=== PATIENT | female | born 1930 | race Caucasian/White ===

== ENCOUNTER → 2017-07-28 | Outpatient (CLI) | payer MEDICARE ==
[~2017-07-28] MED LIST: 'CLONIDINE0.1 MG PO; AMARYL4 MG PO; ASPIRIN81 M1 PO; ATORVASTATIN CA20 M1 PO; B12100 MC1 PO; CENTRUM SILVER1 EAC1 PO; D3-20002000 UNIT PO; DOXAZOSIN MESYLA1 MG PO; JANUMET XR 1001 EACH PO; LEVOTHYROXINE0.05 M1 PO; METOPROLOL SUCC50 M1 PO; OCUVITE ADULT 51 SGL PO; OMEPRAZOLE MAGN20 MG PO; QUINAPRIL40 MG PO; TOPCARE OMEPRAZ20 MG PO
== END | disposition home or self-care (01) ==
LOC: MAMMO 00:40
DX: Z12.31 Encounter for screening mammogram for malignant neoplasm of breast (principal); Z13.820 Encounter for screening for osteoporosis; R29.890 Loss of height; Z90.722 Acquired absence of ovaries, bilateral; Z85.528 Personal history of other malignant neoplasm of kidney; Z90.710 Acquired absence of both cervix and uterus; Z78.0 Asymptomatic menopausal state; Z96.643 Presence of artificial hip joint, bilateral; Z98.1 Arthrodesis status

== ENCOUNTER 2017-09-21 15:13 | Inpatient (IN) | payer MEDICARE ==
[~2017-09-21] VITALS: Ht 160 cm; Wt 73.7 kg
[2017-09-21 15:28] VITALS: BP 169/78
--- NOTE | 2017-09-21 16:20 | NUR ---
PATIENT STATES DEMEROL EFFECTIVE FOR PAIN RELIEF. PATIENT RESTING IN BED. DENIES ANY DISCOMFORT AT THIS TIME.
[2017-09-21 16:21] LABS: BASO # 0.1 10*3/uL (0.0-0.1); BASO % 0.4 % (0.0-1.0); EOS # 0.4 10*3/uL (0.0-0.4); EOS % 2.5 % (1.0-4.0); HEMATOCRIT 33.9 % (37.0-47.0); LYMPH # 2.1 10*3/uL (1.3-4.4); LYMPH % 14.6 % (27.0-41.0); MEAN CELL VOLUME 89.2 fl (81.0-99.0); MEAN CORPUSCULAR HGB 28.9 pg (27.0-31.0); MEAN CORPUSCULAR HGB CONC 32.4 g/dl (33.0-37.0); MEAN PLATELET VOLUME 9.6 fl (9.6-12.3); MONO # 0.8 10*3/uL (0.1-1.0); MONO % 5.8 % (3.0-9.0); NEUT # 10.9 10*3/uL (2.3-7.9); NEUT % 76.2 % (47.0-73.0); PLATELET COUNT AUTOMATED 215 10*3/uL (130-400); RED CELL DISTRI WIDTH 13.4 % (0-14.5); WHITE BLOOD COUNT 14.4 10*3/uL (4.8-10.8)
[2017-09-21 16:30] LABS: ACT PARTIAL THROMBO TIME 22.1 SECONDS (20.8-31.5)
--- NOTE | 2017-09-21 16:30 | NUR ---
PATIENT AND FAMILY REPORTS THAT ZOFRAN HAS NOT BEEN EFFECTIVE IN THE PAST. REQUESTS REGLAN. PATIENT REPORTS NAUSEA IS PERSISTENT. SEE NEW ORDERS.
--- NOTE | 2017-09-21 16:37 | NUR ---
REGLAN ADMINISTERED PER PT AND FAMILY REQUEST. WILL CONTINUE TO MONITOR PT.
[2017-09-21 16:38] LABS: ALBUMIN 3.6 gm/dl (3.1-4.5); ALKALINE PHOSPHATASE 90 U/L (45-117); BUN 29 mg/dl (7-24); CHLORIDE 108 mmol/L (98-107); CREATININE 1.43 mg/dL (0.55-1.02); LIPASE 186 U/L (73-393); POTASSIUM 4.2 mmol/L (3.5-5.1); SGOT/AST 13 IU/L (3-35); SGPT/ALT 20 U/L (12-78); SODIUM 141 mmol/L (136-145); TOTAL PROTEIN 7.5 gm/dL (6.4-8.2)
[2017-09-21 16:43] LABS: TROPONIN I < 0.015 ng/ml (<0.045)
--- NOTE | 2017-09-21 16:55 | NUR ---
PATIENT ACTIVELY VOMITING AT THIS TIME. CHANEL LOUIS NOTIFIED. SEE NEW ORDERS.
--- NOTE | 2017-09-21 17:20 | NUR ---
PT MEDICATED FOR NAUSEA AT THIS TIME. WILL CONTINUE TO MONITOR.
[2017-09-21 17:40] LABS: BILIRUBIN NEGATIVE (NEGATIVE); BLOOD TRACE-LYSED (NEGATIVE); CLARITY CLEAR (CLEAR); COLOR YELLOW (YELLOW); GLUCOSE 1+ (NEGATIVE); KETONE NEGATIVE (NEGATIVE); LEUKO ESTERASE NEGATIVE (NEGATIVE); NITRITE NEGATIVE (NEGATIVE); PH 5.5 (5.0-9.0); UROBILINOGEN 0.2 E.U./dl (0.2-1.0)
--- NOTE | 2017-09-21 17:40 | NUR ---
PT LAYING IN BED. PT DENIES NAUSEA, PAIN OR DISCOMFORT AT THIS TIME. FAMILY AT BEDSIDE. WILL CONTINUE TO MONITOR.
[2017-09-21 17:53] LABS: BACTERIA TRACE
[2017-09-21 18:00] VITALS: BP 154/72
--- NOTE | 2017-09-21 18:55 | NUR ---
Time: 1854 A 86 year old FEMALE admitted to under services of MAEGAN CIFUENTES DO, Pt. arrived via bed from ER. Chief complaint: ABDOMINAL PAIN. JIGAR SOLORZANO
[2017-09-21] MEDS ORDERED: GLIMEPIRIDE4 M1 PO (19:00)
[2017-09-21] MEDS ORDERED: JANUMET XR 50-1 EAC1 PO (19:02)
[2017-09-21] MEDS ORDERED: METOPROLOL TART50 M1 PO (19:05)
--- NOTE | 2017-09-21 19:05 | NUR ---
DR. AGUILLON INFORMED THAT PATIENT IS ON THE FLOOR FOR ADMISSION FROM ER.
[2017-09-21] MEDS ORDERED: 'CLONIDINE0.1 MG PO (19:18)
[2017-09-21] MEDS ORDERED: B12,B-12,B 12500 MC1 PO (19:19)
[2017-09-21 20:00] VITALS: BP 160/80
--- NOTE | 2017-09-21 20:00 | NUR ---
PT. IS RESTING IN BED WITH VISITOR AT BEDSIDE. PT. HAS HOB ELEVATED AND CALL LIGHT WITHIN REACH. PT. HAS NO C/O STOMACH PAIN AT THIS TIME AND DENIES NAUSEA, SMALL, YELLOW, EMESIS NOTED IN WASH BASIN. PT. DENIES ANY OTHER C/O, AND DISTRESS IS NOT NOTED AT THIS TIME. IV IN LEFT HAND PATENT AND RUNNING LR AT 80ML/HR. SEE SHIFT ASSESSMENT.
[2017-09-22] VITALS: BP 144/40
[2017-09-22 06:39] LABS: BASO % 0.3 % (0.0-1.0); EOS # 0.1 10*3/uL (0.0-0.4); EOS % 0.5 % (1.0-4.0); HEMOGLOBIN 10.4 g/dl (12.0-16.0); LYMPH # 2.1 10*3/uL (1.3-4.4); LYMPH % 17.8 % (27.0-41.0); MEAN CELL VOLUME 91.2 fl (81.0-99.0); MEAN CORPUSCULAR HGB 29.6 pg (27.0-31.0); MEAN CORPUSCULAR HGB CONC 32.5 g/dl (33.0-37.0); MEAN PLATELET VOLUME 10.3 fl (9.6-12.3); MONO # 0.9 10*3/uL (0.1-1.0); MONO % 7.5 % (3.0-9.0); NEUT # 8.7 10*3/uL (2.3-7.9); NEUT % 73.6 % (47.0-73.0); PLATELET COUNT AUTOMATED 219 10*3/uL (130-400); RED BLOOD COUNT 3.51 10*6/uL (4.10-5.10); RED CELL DISTRI WIDTH 13.4 % (0-14.5); WHITE BLOOD COUNT 11.8 10*3/uL (4.8-10.8)
[2017-09-22 06:47] LABS: CREATININE 1.26 mg/dL (0.55-1.02); POTASSIUM 4.2 mmol/L (3.5-5.1)
[2017-09-22 06:52] LABS: PHOSPHOROUS 3.2 mg/dL (2.5-4.9)
[2017-09-22 06:58] LABS: THYROID STIM HORMONE (HS) 0.796 uIU/ml (0.358-4.75)
[2017-09-22 07:56] LABS: VITAMIN D, 25-HYDROXY 31.8 ng/mL (30-100)
[2017-09-22 08:00] VITALS: BP 130/40
--- NOTE | 2017-09-22 08:30 | NUR ---
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 Patient states lives at home alone. There are no steps in the home. Physician: Astrid Pal CNP [facility] [place] [facility]: none at present, has used [facility] previously Patient's level of ADLs: INDEPENDENT Patient has working utilities: yes DME: none Follow-up physician's appointment after d/c: will be made by hospitalist nurse director upon discharge Does patient want to access PORTAL?: no Discharge plan discussed with patient. She lives at home alone. She in independent in her ADLs and ambulation. She is feeling much better today and is hoping to be discharged today. She has a she wants to attend. Denies any home needs at this time. When medically stable she will be discharged to home. JENNIFER BOND
[2017-09-22] MEDS ORDERED: PHENERGAN25 M3 PO (10:55)
--- NOTE | 2017-09-22 12:30 | NUR ---
CCDIS Discharge instructions reviewed with patient/family. Patient receptive and verbalizes understanding. Follow-up care arranged. Written instructions given to patient/family. SILVANO NIETO
== END 2017-09-22 12:30 | disposition home or self-care (01) | DRG 683 ==
LOC: ED 15:13 → EDHOLD 18:38 → 4E 18:38
PROVIDERS: Physician Assistant; Student in an Organized Health Care Education/Training Program; ADMIT Internal Medicine
DX: N17.0 Acute kidney failure with tubular necrosis (principal); I50.32 Chronic diastolic (congestive) heart failure; E11.22 Type 2 diabetes mellitus with diabetic chronic kidney disease; E11.65 Type 2 diabetes mellitus with hyperglycemia; I13.0 Hypertensive heart and chronic kidney disease with heart failure and stage 1 through stage 4 chronic kidney disease, or unspecified chronic kidney disease; D72.829 Elevated white blood cell count, unspecified; D64.9 Anemia, unspecified; K21.9 Gastro-esophageal reflux disease without esophagitis; Z96.643 Presence of artificial hip joint, bilateral; Z96.653 Presence of artificial knee joint, bilateral; E86.0 Dehydration; K57.30 Diverticulosis of large intestine without perforation or abscess without bleeding; N18.3 Chronic kidney disease, stage 3 (moderate); K44.9 Diaphragmatic hernia without obstruction or gangrene; E03.9 Hypothyroidism, unspecified; E53.8 Deficiency of other specified B group vitamins; E78.5 Hyperlipidemia, unspecified; K22.719 Barrett's esophagus with dysplasia, unspecified; H35.30 Unspecified macular degeneration; Z85.038 Personal history of other malignant neoplasm of large intestine; Z90.5 Acquired absence of kidney; Z90.49 Acquired absence of other specified parts of digestive tract; Z90.710 Acquired absence of both cervix and uterus; Z80.0 Family history of malignant neoplasm of digestive organs; Z82.49 Family history of ischemic heart disease and other diseases of the circulatory system; Z83.3 Family history of diabetes mellitus; Z79.82 Long term (current) use of aspirin; Z79.899 Other long term (current) drug therapy

== ENCOUNTER → 2019-01-10 | Outpatient (CLI) | payer MEDICARE ==
[~2019-01-10] MED LIST changes: +B12,B-12,B 12500 MC1 PO; +GLIMEPIRIDE4 M1 PO; +JANUMET XR 50-1 EAC1 PO; +METOPROLOL TART50 M1 PO; +PHENERGAN25 M3 PO
--- NOTE | ~2019-01-10 | EKG ---
[place], [place] ELECTROCARDIOGRAM REPORT NAME: FRANCO KAPADIA UNIT #: [id number] ROOM: DOCTOR: EPIPHANY DRAFT REPORT BIRTHDATE: [birth year] [facility] Test Date: 2019-01-10 Test Time: 08:17:53 Pat Name: FRANCO KAPADIA Department: Room: Gender: F Servicer: Chantale Sanchez : 1930 Requested By: TRIXIE MILTON CNP Order Number: [id number] Reading MD: Jewel Acosta MD Measurements Intervals [place] Rate: 70 P: 19 CA: 198 QRS: -4 QRSD: 92 T: 65 QT: 397 QTc: 429 Interpretive Statements Sinus rhythm Nonspecific ST T changes Electronically Signed On 01-11-2019 8:30:34 PDT by Jewel Acosta MD CM:EKGRPT:ELECTROCARDIOGRAM REPORT 6 9 TRIXIE MILTON CNP EPIPHANY DRAFT REPORT TRIXIE MILTON CNP
--- NOTE | ~2019-01-10 | HM ---
[place], [place] HOLTER MONITOR REPORT NAME: FRANCO KAPADIA UNIT #: [id number] ROOM: DOCTOR: COURTNEY CIFUENTES MD BIRTHDATE: [birth year] DOS: 01/11/2019 A 24-HOUR HOLTER MONITOR The patient remained in sinus rhythm throughout the entire period. Minimum heart rate is 61 and average heart rate is 85, maximum is 118 beats per minute. As mentioned, the patient in sinus rhythm, few episodes of sinus tachycardia, isolated, premature ventricular contractions are present. Total of 661 in a 24-hour period. No ventricular tachycardia, no supraventricular tachycardia. No significant pauses. FINAL IMPRESSION: Sinus rhythm with a few episodes of sinus tachycardia, isolated premature ventricular contraction. No other ventricular or supraventricular dysrhythmia. No significant pauses. COURTNEY CIFUENTES MD CM:HOLTER:HOLTER MONITOR REPORT [id number] COURTNEY CIFUENTES MD
== END | disposition home or self-care (01) ==
LOC: CARD 07:01
DX: I07.1 Rheumatic tricuspid insufficiency (principal); I65.29 Occlusion and stenosis of unspecified carotid artery; R42 Dizziness and giddiness; Z79.899 Other long term (current) drug therapy

== ENCOUNTER → 2019-01-19 | Outpatient (CLI) | payer MEDICARE ==
[2019-01-19 15:45] LABS: CREATININE 1.42 mg/dL (0.55-1.02); POTASSIUM 3.8 mmol/L (3.5-5.1)
== END | disposition home or self-care (01) ==
LOC: LAB 14:02
PROVIDERS: Surgery Vascular Surgery
DX: I65.23 Occlusion and stenosis of bilateral carotid arteries (principal)

== ENCOUNTER → 2019-01-25 | Outpatient (CLI) | payer MEDICARE ==
[2019-01-25 15:38] LABS: CREATININE 1.42 mg/dL (0.55-1.02); POTASSIUM 4.5 mmol/L (3.5-5.1)
== END | disposition home or self-care (01) ==
LOC: LAB 14:40
PROVIDERS: Surgery Vascular Surgery
DX: I65.23 Occlusion and stenosis of bilateral carotid arteries (principal)

== ENCOUNTER → 2019-05-18 | Outpatient (CLI) | payer MEDICARE ==
[2019-05-18 08:51] LABS: ALBUMIN 3.8 gm/dl (3.1-4.5); CREATININE 1.43 mg/dL (0.55-1.02); FREE T4 1.1 ng/dl (0.76-1.46); POTASSIUM 4.3 mmol/L (3.5-5.1)
[2019-05-18 08:56] LABS: THYROID STIM HORMONE (HS) 0.764 uIU/ml (0.358-4.75)
[2019-05-18 17:16] LABS: VITAMIN D, 25-HYDROXY 30.1 ng/mL (30-100)
== END | disposition home or self-care (01) ==
LOC: LAB 07:16
PROVIDERS: Internal Medicine Endocrinology, Diabetes & Metabolism
DX: E03.9 Hypothyroidism, unspecified (principal); E11.9 Type 2 diabetes mellitus without complications; E55.9 Vitamin D deficiency, unspecified; E53.8 Deficiency of other specified B group vitamins

== ENCOUNTER → 2019-06-06 | Outpatient (CLI) | payer MEDICARE | END | disposition home or self-care (01) | LOC: RESCLI 01:55 | DX: I12.9 Hypertensive chronic kidney disease with stage 1 through stage 4 chronic kidney disease, or unspecified chronic kidney disease (principal); E11.22 Type 2 diabetes mellitus with diabetic chronic kidney disease; N18.3 Chronic kidney disease, stage 3 (moderate); E55.9 Vitamin D deficiency, unspecified; E53.8 Deficiency of other specified B group vitamins; E03.9 Hypothyroidism, unspecified; E78.5 Hyperlipidemia, unspecified; Z78.0 Asymptomatic menopausal state; Z79.899 Other long term (current) drug therapy ==

== ENCOUNTER → 2019-07-26 | Outpatient (CLI) | payer MEDICARE | END | disposition home or self-care (01) | LOC: RAD 01:03 | DX: Z13.820 Encounter for screening for osteoporosis (principal); Z78.0 Asymptomatic menopausal state; Z90.710 Acquired absence of both cervix and uterus ==

== ENCOUNTER 2019-08-19 23:45 | Emergency (ER) | payer MEDICARE ==
[~2019-08-19] VITALS: Wt 72.6 kg
--- NOTE | ~2019-08-19 | EKG ---
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
[2019-08-20 00:14] LABS: BASO # 0.1 10*3/uL (0.0-0.1); BASO % 0.8 % (0.0-1.0); EOS # 0.5 10*3/uL (0.0-0.4); EOS % 5.6 % (1.0-4.0); HEMATOCRIT 36.4 % (37.0-47.0); HEMOGLOBIN 11.7 g/dl (12.0-16.0); LYMPH # 2.9 10*3/uL (1.3-4.4); LYMPH % 29.8 % (27.0-41.0); MEAN CELL VOLUME 92.9 fl (81.0-99.0); MEAN CORPUSCULAR HGB 29.8 pg (27.0-31.0); MEAN CORPUSCULAR HGB CONC 32.1 g/dl (33.0-37.0); MEAN PLATELET VOLUME 9.9 fl (9.6-12.3); MONO # 0.8 10*3/uL (0.1-1.0); NEUT # 5.4 10*3/uL (2.3-7.9); NEUT % 55.5 % (47.0-73.0); PLATELET COUNT AUTOMATED 203 10*3/uL (130-400); RED BLOOD COUNT 3.92 10*6/uL (4.10-5.10); RED CELL DISTRI WIDTH 12.9 % (0-14.5); WHITE BLOOD COUNT 9.6 10*3/uL (4.8-10.8)
[2019-08-20 00:23] LABS: BILIRUBIN NEGATIVE (NEGATIVE); BLOOD TRACE-INTACT (NEGATIVE); CLARITY CLEAR (CLEAR); COLOR YELLOW (YELLOW); GLUCOSE NEGATIVE (NEGATIVE); KETONE NEGATIVE (NEGATIVE); LEUKO ESTERASE 2+ (NEGATIVE); NITRITE NEGATIVE (NEGATIVE); SPECIFIC GRAVITY <= 1.005 (1.005-1.030); UROBILINOGEN 0.2 E.U./dl (0.2-1.0)
[2019-08-20 00:31] LABS: ALBUMIN 3.6 gm/dl (3.1-4.5); ALKALINE PHOSPHATASE 77 U/L (45-117); BUN 33 mg/dl (7-24); CHLORIDE 111 mmol/L (98-107); CPK 58 U/L (26-192); CREATININE 1.48 mg/dL (0.55-1.02); POTASSIUM 3.9 mmol/L (3.5-5.1); SGOT/AST 13 IU/L (3-35); SGPT/ALT 22 U/L (12-78); SODIUM 141 mmol/L (136-145); TOTAL PROTEIN 7.5 gm/dL (6.4-8.2)
[2019-08-20 00:34] LABS: BACTERIA 1+; EPITHELIAL CELLS 15-20; RBC 21-30 rbc/hpf (0-2); WBC 41-50 wbc/hpf (0-5)
[2019-08-20 00:36] LABS: TROPONIN I < 0.015 ng/ml (<0.045)
[2019-08-20 00:37] LABS: ACT PARTIAL THROMBO TIME 23.1 SECONDS (20.0-32.1); INTERNATIONAL NORM RATIO 0.9 (2.0-3.5)
== END 2019-08-20 04:43 ==
LOC: ED 23:45
PROVIDERS: Physician Assistant
DX: G45.9 Transient cerebral ischemic attack, unspecified (principal); I11.0 Hypertensive heart disease with heart failure; I50.30 Unspecified diastolic (congestive) heart failure; E11.9 Type 2 diabetes mellitus without complications; K21.9 Gastro-esophageal reflux disease without esophagitis; E78.5 Hyperlipidemia, unspecified; E03.9 Hypothyroidism, unspecified; Z86.73 Personal history of transient ischemic attack (TIA), and cerebral infarction without residual deficits; Z79.899 Other long term (current) drug therapy; Z79.82 Long term (current) use of aspirin

== ENCOUNTER → 2019-09-21 | Outpatient (CLI) | payer MEDICARE | END | disposition home or self-care (01) | LOC: RESCLI 00:38 | DX: E11.22 Type 2 diabetes mellitus with diabetic chronic kidney disease (principal); I12.9 Hypertensive chronic kidney disease with stage 1 through stage 4 chronic kidney disease, or unspecified chronic kidney disease; N18.3 Chronic kidney disease, stage 3 (moderate); E55.9 Vitamin D deficiency, unspecified; E53.8 Deficiency of other specified B group vitamins; E03.9 Hypothyroidism, unspecified; E78.5 Hyperlipidemia, unspecified; D64.9 Anemia, unspecified; M81.0 Age-related osteoporosis without current pathological fracture; Z78.0 Asymptomatic menopausal state; Z90.710 Acquired absence of both cervix and uterus; Z79.899 Other long term (current) drug therapy; Z90.49 Acquired absence of other specified parts of digestive tract; Z96.651 Presence of right artificial knee joint; Z96.652 Presence of left artificial knee joint; Z90.5 Acquired absence of kidney; Z85.53 Personal history of malignant neoplasm of renal pelvis ==

== ENCOUNTER 2020-02-22 19:22 | Inpatient (IN) | payer MEDICARE ==
[~2020-02-22] VITALS: Ht 160 cm; Wt 69.9 kg
[2020-02-22 19:52] VITALS: BP 164/53
[2020-02-22 21:39] LABS: BASO % 0.2 % (0.0-1.0); EOS % 0.2 % (1.0-4.0); HEMATOCRIT 38.7 % (37.0-47.0); LYMPH # 1.4 10*3/uL (1.3-4.4); LYMPH % 10.4 % (27.0-41.0); MEAN CORPUSCULAR HGB CONC 32.6 g/dl (33.0-37.0); MEAN PLATELET VOLUME 9.5 fl (9.6-12.3); MONO # 0.8 10*3/uL (0.1-1.0); MONO % 6.1 % (3.0-9.0); NEUT # 10.8 10*3/uL (2.3-7.9); NEUT % 82.6 % (47.0-73.0); PLATELET COUNT AUTOMATED 254 10*3/uL (130-400); RED BLOOD COUNT 4.35 10*6/uL (4.10-5.10); RED CELL DISTRI WIDTH 13.2 % (0-14.5); WHITE BLOOD COUNT 13.1 10*3/uL (4.8-10.8)
[2020-02-22 21:50] LABS: ACT PARTIAL THROMBO TIME 22.8 SECONDS (20.0-32.1); INTERNATIONAL NORM RATIO 0.9 (2.0-3.5)
[2020-02-22 21:56] LABS: ALBUMIN 3.7 gm/dl (3.1-4.5); ALKALINE PHOSPHATASE 87 U/L (45-117); BUN 40 mg/dl (7-24); CHLORIDE 106 mmol/L (98-107); CREATININE 1.88 mg/dL (0.55-1.02); LIPASE 179 U/L (73-393); POTASSIUM 4.4 mmol/L (3.5-5.1); SGOT/AST 20 IU/L (3-35); SGPT/ALT 27 U/L (12-78); SODIUM 134 mmol/L (136-145); TOTAL PROTEIN 7.6 gm/dL (6.4-8.2); TROPONIN I < 0.015 ng/ml (<0.045)
[2020-02-23] VITALS (7 sets, daily range): BP systolic 124–162; BP diastolic 45–78
[2020-02-23 06:08] LABS: BASO # 0.1 10*3/uL (0.0-0.1); BASO % 0.5 % (0.0-1.0); EOS # 0.2 10*3/uL (0.0-0.4); EOS % 2.1 % (1.0-4.0); LYMPH # 1.9 10*3/uL (1.3-4.4); LYMPH % 19.5 % (27.0-41.0); MEAN CELL VOLUME 91.8 fl (81.0-99.0); MEAN CORPUSCULAR HGB CONC 31.6 g/dl (33.0-37.0); MEAN PLATELET VOLUME 10.9 fl (9.6-12.3); MONO # 0.8 10*3/uL (0.1-1.0); MONO % 8.4 % (3.0-9.0); NEUT # 6.6 10*3/uL (2.3-7.9); NEUT % 69.1 % (47.0-73.0); PLATELET COUNT AUTOMATED 230 10*3/uL (130-400); RED BLOOD COUNT 4.03 10*6/uL (4.10-5.10); RED CELL DISTRI WIDTH 13.4 % (0-14.5); WHITE BLOOD COUNT 9.6 10*3/uL (4.8-10.8)
[2020-02-23 06:59] LABS: CREATININE 1.51 mg/dL (0.55-1.02); POTASSIUM 4.2 mmol/L (3.5-5.1)
[2020-02-23] MEDS ORDERED: GLUCOTROL5 MG PO (08:50)
[2020-02-23] MEDS ORDERED: CLOPIDOGREL75 MG PO (08:51)
[2020-02-23] MEDS ORDERED: SEROQUEL25 MG PO (08:56)
[2020-02-23] MEDS ORDERED: Synthroid,Levo50 MCG PO ×2 (08:58→08:59)
[2020-02-23] MEDS ORDERED: TRAD5TAB1 PO (09:00)
[2020-02-23] MEDS ORDERED: NORVASC5 MG PO (09:02)
[2020-02-24] VITALS: BP 139/59
[2020-02-24 05:55] LABS: BASO # 0.1 10*3/uL (0.0-0.1); BASO % 0.7 % (0.0-1.0); EOS # 0.4 10*3/uL (0.0-0.4); EOS % 5.5 % (1.0-4.0); HEMATOCRIT 35.4 % (37.0-47.0); LYMPH # 1.6 10*3/uL (1.3-4.4); LYMPH % 22.6 % (27.0-41.0); MEAN CELL VOLUME 91.7 fl (81.0-99.0); MEAN CORPUSCULAR HGB 29.3 pg (27.0-31.0); MEAN CORPUSCULAR HGB CONC 31.9 g/dl (33.0-37.0); MEAN PLATELET VOLUME 10.1 fl (9.6-12.3); MONO # 0.5 10*3/uL (0.1-1.0); MONO % 7.2 % (3.0-9.0); NEUT # 4.4 10*3/uL (2.3-7.9); NEUT % 63.4 % (47.0-73.0); PLATELET COUNT AUTOMATED 233 10*3/uL (130-400); RED BLOOD COUNT 3.86 10*6/uL (4.10-5.10); RED CELL DISTRI WIDTH 13.4 % (0-14.5); WHITE BLOOD COUNT 6.9 10*3/uL (4.8-10.8)
[2020-02-24 06:08] LABS: CREATININE 1.33 mg/dL (0.55-1.02); POTASSIUM 4.4 mmol/L (3.5-5.1)
[2020-02-24 08:00] VITALS: BP 142/60
[2020-02-24 09:00] VITALS: BP 110/42
[2020-02-24] MEDS ORDERED: CIPRO500 MG PO (10:48)
[2020-02-24] MEDS ORDERED: FLAGYL500 MG PO (10:48)
== END 2020-02-24 14:51 | disposition home or self-care (01) | DRG 391 ==
LOC: ED 19:22 → EDHOLD 02-23 01:20 → 4E 02-23 01:45
PROVIDERS: Emergency Medicine Emergency Medical Services; Internal Medicine; ADMIT Internal Medicine
DX: K29.80 Duodenitis without bleeding (principal); N17.0 Acute kidney failure with tubular necrosis; E87.1 Hypo-osmolality and hyponatremia; I13.0 Hypertensive heart and chronic kidney disease with heart failure and stage 1 through stage 4 chronic kidney disease, or unspecified chronic kidney disease; I50.30 Unspecified diastolic (congestive) heart failure; A09 Infectious gastroenteritis and colitis, unspecified; N18.3 Chronic kidney disease, stage 3 (moderate); D72.829 Elevated white blood cell count, unspecified; E83.41 Hypermagnesemia; E03.9 Hypothyroidism, unspecified; E11.65 Type 2 diabetes mellitus with hyperglycemia; E78.5 Hyperlipidemia, unspecified; Z96.643 Presence of artificial hip joint, bilateral; Z96.653 Presence of artificial knee joint, bilateral; E11.22 Type 2 diabetes mellitus with diabetic chronic kidney disease; K21.9 Gastro-esophageal reflux disease without esophagitis; K57.90 Diverticulosis of intestine, part unspecified, without perforation or abscess without bleeding; K44.9 Diaphragmatic hernia without obstruction or gangrene; S20.211A Contusion of right front wall of thorax, initial encounter; E53.8 Deficiency of other specified B group vitamins; K22.70 Barrett's esophagus without dysplasia; W01.0XXA Fall on same level from slipping, tripping and stumbling without subsequent striking against object, initial encounter; Y93.89 Activity, other specified; Y92.098 Other place in other non-institutional residence as the place of occurrence of the external cause; Y99.8 Other external cause status; Z85.038 Personal history of other malignant neoplasm of large intestine; Z86.73 Personal history of transient ischemic attack (TIA), and cerebral infarction without residual deficits; Z90.49 Acquired absence of other specified parts of digestive tract; Z90.710 Acquired absence of both cervix and uterus; Z98.1 Arthrodesis status; Z82.49 Family history of ischemic heart disease and other diseases of the circulatory system; Z80.0 Family history of malignant neoplasm of digestive organs; Z83.3 Family history of diabetes mellitus; Z79.899 Other long term (current) drug therapy; Z79.84 Long term (current) use of oral hypoglycemic drugs

== ENCOUNTER 2020-03-23 19:12 | Inpatient (IN) | payer MEDICARE ==
[~2020-03-23] VITALS: Ht 160 cm; Wt 69.0 kg
[~2020-03-23 19:12] MED LIST changes: +CIPRO500 MG PO; +CLOPIDOGREL75 MG PO; +FLAGYL500 MG PO; +GLUCOTROL5 MG PO; +NORVASC5 MG PO; +SEROQUEL25 MG PO; +Synthroid,Levo50 MCG PO; +TRAD5TAB1 PO
[2020-03-23 19:18] VITALS: BP 172/71
[2020-03-23 19:50] LABS: BASO # 0.1 10*3/uL (0.0-0.1); BASO % 0.6 % (0.0-1.0); EOS # 0.1 10*3/uL (0.0-0.4); EOS % 0.6 % (1.0-4.0); LYMPH # 1.9 10*3/uL (1.3-4.4); LYMPH % 14.8 % (27.0-41.0); MEAN CELL VOLUME 91.7 fl (81.0-99.0); MEAN CORPUSCULAR HGB 28.9 pg (27.0-31.0); MEAN CORPUSCULAR HGB CONC 31.5 g/dl (33.0-37.0); MEAN PLATELET VOLUME 9.2 fl (9.6-12.3); MONO # 0.7 10*3/uL (0.1-1.0); MONO % 5.8 % (3.0-9.0); NEUT # 9.7 10*3/uL (2.3-7.9); NEUT % 77.7 % (47.0-73.0); PLATELET COUNT AUTOMATED 264 10*3/uL (130-400); RED BLOOD COUNT 4.36 10*6/uL (4.10-5.10); RED CELL DISTRI WIDTH 13.5 % (0-14.5); WHITE BLOOD COUNT 12.5 10*3/uL (4.8-10.8)
[2020-03-23 20:04] LABS: ALBUMIN 3.8 gm/dl (3.1-4.5); CREATININE 1.76 mg/dL (0.55-1.02); POTASSIUM 4.1 mmol/L (3.5-5.1); TOTAL PROTEIN 8.3 gm/dL (6.4-8.2)
[2020-03-23 21:18] LABS: BILIRUBIN NEGATIVE (NEGATIVE); BLOOD NEGATIVE (NEGATIVE); CLARITY CLOUDY (CLEAR); COLOR YELLOW (YELLOW); GLUCOSE NEGATIVE (NEGATIVE); KETONE NEGATIVE (NEGATIVE); LEUKO ESTERASE NEGATIVE (NEGATIVE); NITRITE NEGATIVE (NEGATIVE); SPECIFIC GRAVITY 1.025 (1.005-1.030); URIC ACID CRYSTALS 4+; UROBILINOGEN 0.2 E.U./dl (0.2-1.0)
[2020-03-23 21:30] VITALS: BP 135/62
[2020-03-23 22:52] VITALS: BP 153/62
--- NOTE | 2020-03-23 22:52 | NUR ---
A 89, admitted to , under the services of MJ Lewis DO with a diagnosis of CARSON, N/V. Chief complaint is NAUSEA AND VOMITING. Patient arrived via stretcher from ER. Monitor applied. Initial assessment completed. Vital signs taken and recorded. MJ LEWIS DO notified of admission to the unit. Orders received. See assessment for past medical history, medications and allergies. Patient and/or family oriented to unit. [facility] visitation policy reviewed. Clothing/patient valuable form completed. MITCHEL GARCIA
--- NOTE | 2020-03-23 23:00 | NUR ---
ON FLOOR, INFORMED HOME MED VERIFIED AND PATIENT IS A DNRCC. STATED OK
[2020-03-23] MEDS ORDERED: ASPIR 8181 MG PO (23:09)
[2020-03-23] MEDS ORDERED: PEPCID20 MG PO (23:09)
[2020-03-24] VITALS: BP 153/62
[2020-03-24 06:54] LABS: BASO # 0.1 10*3/uL (0.0-0.1); BASO % 0.8 % (0.0-1.0); EOS # 0.4 10*3/uL (0.0-0.4); EOS % 3.4 % (1.0-4.0); HEMATOCRIT 38.2 % (37.0-47.0); LYMPH # 2.5 10*3/uL (1.3-4.4); MEAN CELL VOLUME 92.3 fl (81.0-99.0); MEAN CORPUSCULAR HGB 28.7 pg (27.0-31.0); MEAN CORPUSCULAR HGB CONC 31.2 g/dl (33.0-37.0); MEAN PLATELET VOLUME 10.1 fl (9.6-12.3); MONO # 0.7 10*3/uL (0.1-1.0); MONO % 7.2 % (3.0-9.0); NEUT # 6.6 10*3/uL (2.3-7.9); NEUT % 64.3 % (47.0-73.0); PLATELET COUNT AUTOMATED 256 10*3/uL (130-400); RED BLOOD COUNT 4.14 10*6/uL (4.10-5.10); RED CELL DISTRI WIDTH 13.7 % (0-14.5); WHITE BLOOD COUNT 10.2 10*3/uL (4.8-10.8)
[2020-03-24 07:14] LABS: ALBUMIN 3.4 gm/dl (3.1-4.5); CREATININE 1.39 mg/dL (0.55-1.02); POTASSIUM 3.7 mmol/L (3.5-5.1); TOTAL PROTEIN 7.5 gm/dL (6.4-8.2)
[2020-03-24 07:18] LABS: THYROID STIM HORMONE (HS) 0.244 uIU/ml (0.358-4.75)
[2020-03-24 08:00] VITALS: BP 166/53
--- NOTE | 2020-03-24 09:00 | NUR ---
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 Patient states lives at home with alone. There are 2 steps in the home. Physician: steve bonilla [facility] health services: none Patient's level of ADLs: INDEPENDENT Patient has working utilities: all working DME: none Follow-up physician's appointment after d/c: will be made by hospitalist nurse director upon discharge Does patient want to access PORTAL?: no Discharge plan discussed with patient, she states she lives at home alone, she is independent in adls and ambulation, drives but hasn't felt well enough to drive within the last two weeks, she states she has someone stay at night with her, she stated she would return home when medically stable and denies any home needs, case management will followl. SARAVANAN FIGUEREDO
--- NOTE | 2020-03-24 09:22 | NUR ---
PT RESTING IN BED. NO DISTRESS NOTED. WILL MONITOR
[2020-03-24 12:00] VITALS: BP 131/51
[2020-03-24] MEDS ORDERED: ZOFRAN4 MG PO (13:53)
--- NOTE | 2020-03-24 15:56 | NUR ---
Discharge instructions reviewed with patient/family. Patient receptive and verbalizes understanding. Follow-up care arranged. Written instructions given to patient/family. KAITLIN REN
== END 2020-03-24 15:56 | disposition home or self-care (01) | DRG 871 ==
LOC: ED 19:12 → 4E 22:07 → EDHOLD 22:07 → 4E 22:52
PROVIDERS: Nurse Practitioner Family; Student in an Organized Health Care Education/Training Program; ADMIT Emergency Medicine
DX: A41.9 Sepsis, unspecified organism (principal); N17.0 Acute kidney failure with tubular necrosis; I13.0 Hypertensive heart and chronic kidney disease with heart failure and stage 1 through stage 4 chronic kidney disease, or unspecified chronic kidney disease; I50.32 Chronic diastolic (congestive) heart failure; N18.3 Chronic kidney disease, stage 3 (moderate); R65.20 Severe sepsis without septic shock; E87.8 Other disorders of electrolyte and fluid balance, not elsewhere classified; E83.39 Other disorders of phosphorus metabolism; A08.4 Viral intestinal infection, unspecified; E11.65 Type 2 diabetes mellitus with hyperglycemia; Z96.643 Presence of artificial hip joint, bilateral; Z96.653 Presence of artificial knee joint, bilateral; K21.9 Gastro-esophageal reflux disease without esophagitis; E11.22 Type 2 diabetes mellitus with diabetic chronic kidney disease; K57.90 Diverticulosis of intestine, part unspecified, without perforation or abscess without bleeding; E78.5 Hyperlipidemia, unspecified; E03.9 Hypothyroidism, unspecified; Z86.73 Personal history of transient ischemic attack (TIA), and cerebral infarction without residual deficits; Z85.038 Personal history of other malignant neoplasm of large intestine; Z90.49 Acquired absence of other specified parts of digestive tract; Z90.710 Acquired absence of both cervix and uterus; Z98.1 Arthrodesis status; Z90.5 Acquired absence of kidney; Z82.49 Family history of ischemic heart disease and other diseases of the circulatory system; Z83.3 Family history of diabetes mellitus; Z80.0 Family history of malignant neoplasm of digestive organs; Z79.899 Other long term (current) drug therapy; Z79.82 Long term (current) use of aspirin; Z79.02 Long term (current) use of antithrombotics/antiplatelets

== ENCOUNTER → 2020-08-21 | Outpatient (CLI) | payer MEDICARE ==
[~2020-08-21] MED LIST changes: +ASPIR 8181 MG PO; +PEPCID20 MG PO; +ZOFRAN4 MG PO
== END | disposition home or self-care (01) ==
LOC: RESCLI 00:38
PROVIDERS: ATTEND Internal Medicine
DX: I12.9 Hypertensive chronic kidney disease with stage 1 through stage 4 chronic kidney disease, or unspecified chronic kidney disease (principal); E11.22 Type 2 diabetes mellitus with diabetic chronic kidney disease; N18.32 Chronic kidney disease, stage 3b; E55.9 Vitamin D deficiency, unspecified; E03.9 Hypothyroidism, unspecified; K21.9 Gastro-esophageal reflux disease without esophagitis; E78.5 Hyperlipidemia, unspecified; Z79.899 Other long term (current) drug therapy; Z98.890 Other specified postprocedural states; Z90.49 Acquired absence of other specified parts of digestive tract

== ENCOUNTER → 2021-03-06 | Outpatient (CLI) | payer MEDICARE | END | disposition home or self-care (01) | LOC: RESCLI 01:44 | PROVIDERS: ATTEND Internal Medicine | DX: K21.9 Gastro-esophageal reflux disease without esophagitis (principal); I12.9 Hypertensive chronic kidney disease with stage 1 through stage 4 chronic kidney disease, or unspecified chronic kidney disease; E11.22 Type 2 diabetes mellitus with diabetic chronic kidney disease; N18.30 Chronic kidney disease, stage 3 unspecified; E03.9 Hypothyroidism, unspecified; C18.7 Malignant neoplasm of sigmoid colon; C18.2 Malignant neoplasm of ascending colon; H53.30 Unspecified disorder of binocular vision; E55.9 Vitamin D deficiency, unspecified; G47.00 Insomnia, unspecified; R44.0 Auditory hallucinations; E78.5 Hyperlipidemia, unspecified; M81.0 Age-related osteoporosis without current pathological fracture; Z79.82 Long term (current) use of aspirin; Z79.899 Other long term (current) drug therapy ==

== ENCOUNTER 2021-04-07 16:34 | Emergency (ER) | payer MEDICARE ==
[~2021-04-07] VITALS: Ht 160 cm; Wt 69.4 kg
[~2021-04-07 16:34] MED LIST changes: -ELIQUIS2.5 M1 PO; -ELIQUIS5 M1 PO
[2021-04-07 17:48] LABS: BASO # 0.1 10*3/uL (0.0-0.1); BASO % 0.6 % (0.0-1.0); EOS # 0.2 10*3/uL (0.0-0.4); EOS % 2.7 % (1.0-4.0); HEMATOCRIT 37.7 % (37.0-47.0); LYMPH # 1.7 10*3/uL (1.3-4.4); LYMPH % 20.9 % (27.0-41.0); MEAN CORPUSCULAR HGB 28.6 pg (27.0-31.0); MEAN CORPUSCULAR HGB CONC 31.8 g/dl (33.0-37.0); MEAN PLATELET VOLUME 9.7 fl (9.6-12.3); MONO # 0.7 10*3/uL (0.1-1.0); MONO % 8.5 % (3.0-9.0); NEUT # 5.3 10*3/uL (2.3-7.9); NEUT % 66.7 % (47.0-73.0); PLATELET COUNT AUTOMATED 200 10*3/uL (130-400); RED BLOOD COUNT 4.19 10*6/uL (4.10-5.10); RED CELL DISTRI WIDTH 13.1 % (0-14.5); WHITE BLOOD COUNT 7.9 10*3/uL (4.8-10.8)
[2021-04-07 18:07] LABS: ALBUMIN 3.2 gm/dl (3.1-4.5); CREATININE 1.39 mg/dL (0.55-1.02); POTASSIUM 4.5 mmol/L (3.5-5.1); TOTAL PROTEIN 7.9 gm/dL (6.4-8.2)
[2021-04-07 18:09] LABS: ACT PARTIAL THROMBO TIME 24.2 SECONDS (20.0-32.1)
[2021-04-07] MEDS ORDERED: ELIQUIS5 M1 PO ×2 (18:44→18:58)
[2021-04-07] MEDS ORDERED: ELIQUIS2.5 M1 PO (18:46)
== END 2021-04-07 19:14 | disposition home or self-care (01) ==
LOC: ED 16:34
PROVIDERS: Physician Assistant
DX: I82.402 Acute embolism and thrombosis of unspecified deep veins of left lower extremity (principal); Z79.899 Other long term (current) drug therapy; Z90.49 Acquired absence of other specified parts of digestive tract; Z98.890 Other specified postprocedural states; Z90.710 Acquired absence of both cervix and uterus

== ENCOUNTER → 2021-04-07 | Outpatient (CLI) | payer MEDICARE ==
[~2021-04-07] MED LIST changes: +ELIQUIS2.5 M1 PO; +ELIQUIS5 M1 PO
== END | disposition home or self-care (01) ==
LOC: US 15:15
PROVIDERS: ATTEND Family Medicine
DX: I82.812 Embolism and thrombosis of superficial veins of left lower extremity (principal)

== ENCOUNTER 2021-04-28 15:37 | Emergency (ER) | payer MEDICARE ==
[~2021-04-28] VITALS: Wt 69.9 kg
[~2021-04-28 15:37] MED LIST changes: +ELIQUIS2.5 M1 PO; +ELIQUIS5 M1 PO
[2021-04-28] MEDS ORDERED: CEPHALEXIN500 M1 PO ×2 (17:24)
== END 2021-04-28 17:49 | disposition home or self-care (01) ==
LOC: ED 15:37
DX: L03.116 Cellulitis of left lower limb (principal); R60.0 Localized edema; Z86.718 Personal history of other venous thrombosis and embolism; Z79.899 Other long term (current) drug therapy; Z79.82 Long term (current) use of aspirin; Z96.643 Presence of artificial hip joint, bilateral; Z90.711 Acquired absence of uterus with remaining cervical stump; Z90.49 Acquired absence of other specified parts of digestive tract; Z90.89 Acquired absence of other organs

== ENCOUNTER → 2021-05-08 | Outpatient (CLI) | payer MEDICARE ==
[~2021-05-08] MED LIST changes: +CEPHALEXIN500 M1 PO; +GLUCOTROL XL5 MG PO; +REMERON15 M2 PO
[2021-05-08 09:55] LABS: ALBUMIN 3.7 gm/dl (3.1-4.5); CREATININE 1.4 mg/dL (0.55-1.02); FREE T4 1.03 ng/dl (0.76-1.46); TOTAL PROTEIN 8.1 gm/dL (6.4-8.2)
[2021-05-08 09:59] LABS: THYROID STIM HORMONE (HS) 1.67 uIU/ml (0.358-4.75)
[2021-05-09 09:07] LABS: CREATININE,URINE 314.7 mg/dL (Not Estab.)
== END | disposition home or self-care (01) ==
LOC: LAB 08:59
PROVIDERS: ATTEND Internal Medicine Endocrinology, Diabetes & Metabolism
DX: E11.22 Type 2 diabetes mellitus with diabetic chronic kidney disease (principal); N18.9 Chronic kidney disease, unspecified; E55.9 Vitamin D deficiency, unspecified; E03.9 Hypothyroidism, unspecified

== ENCOUNTER 2021-05-24 01:24 | Inpatient (IN) | payer MEDICARE ==
[2021-05-24] VITALS (7 sets, daily range): BP systolic 119–159; BP diastolic 38–76
[~2021-05-24] VITALS: Ht 157.5 cm; Wt 68.9 kg
[~2021-05-24 01:24] MED LIST changes: -GLUCOTROL XL5 MG PO; -REMERON15 M2 PO
[2021-05-24 01:45] LABS: BILIRUBIN Negative (Negative); BLOOD Trace-Lysed (Negative); CLARITY Clear (Clear); COLOR Yellow (Yellow); GLUCOSE Negative (Negative); KETONE Negative (Negative); LEUKO ESTERASE Trace (Negative); NITRITE Negative (Negative); SPECIFIC GRAVITY 1.015 (1.001-1.030); UROBILINOGEN 0.2 E.U./dl (0.0-1.0)
[2021-05-24 04:13] LABS: BASO % 0.3 % (0.0-1.0); EOS # 0.2 10*3/uL (0.0-0.4); EOS % 1.6 % (1.0-4.0); HEMATOCRIT 39.1 % (37.0-47.0); LYMPH # 1.9 10*3/uL (1.3-4.4); MEAN CELL VOLUME 88.9 fl (81.0-99.0); MEAN CORPUSCULAR HGB 28.6 pg (27.0-31.0); MEAN CORPUSCULAR HGB CONC 32.2 g/dl (33.0-37.0); MEAN PLATELET VOLUME 9.9 fl (9.6-12.3); MONO # 0.8 10*3/uL (0.1-1.0); MONO % 5.4 % (3.0-9.0); NEUT # 11.4 10*3/uL (2.3-7.9); PLATELET COUNT AUTOMATED 250 10*3/uL (130-400); RED CELL DISTRI WIDTH 13.2 % (0-14.5); WHITE BLOOD COUNT 14.4 10*3/uL (4.8-10.8)
[2021-05-24 04:28] LABS: ALBUMIN 3.6 gm/dl (3.1-4.5); CREATININE 1.29 mg/dL (0.55-1.02); POTASSIUM 4.1 mmol/L (3.5-5.1); TOTAL PROTEIN 8.1 gm/dL (6.4-8.2)
[2021-05-24 05:38] LABS: FREE T4 1.05 ng/dl (0.76-1.46)
[2021-05-24 05:44] LABS: THYROID STIM HORMONE (HS) 1.86 uIU/ml (0.358-4.75)
[2021-05-24] MEDS ORDERED: ELIQUIS2.5 M1 PO ×2 (08:32→08:34)
[2021-05-24] MEDS ORDERED: GLUCOTROL XL5 MG PO (08:36)
[2021-05-24] MEDS ORDERED: REMERON15 M2 PO (08:37)
[2021-05-24 09:37] LABS: VITAMIN D, 25-HYDROXY 33.9 ng/mL (30-100)
[2021-05-25] VITALS: BP 152/87
[2021-05-25 06:52] LABS: BASO # 0.1 10*3/uL (0.0-0.1); BASO % 0.6 % (0.0-1.0); EOS # 0.6 10*3/uL (0.0-0.4); EOS % 5.4 % (1.0-4.0); LYMPH # 1.2 10*3/uL (1.3-4.4); MEAN CELL VOLUME 91.5 fl (81.0-99.0); MEAN CORPUSCULAR HGB 27.9 pg (27.0-31.0); MEAN CORPUSCULAR HGB CONC 30.5 g/dl (33.0-37.0); MEAN PLATELET VOLUME 10.3 fl (9.6-12.3); MONO # 0.7 10*3/uL (0.1-1.0); NEUT # 7.9 10*3/uL (2.3-7.9); NEUT % 75.4 % (47.0-73.0); PLATELET COUNT AUTOMATED 221 10*3/uL (130-400); RED BLOOD COUNT 4.26 10*6/uL (4.10-5.10); RED CELL DISTRI WIDTH 13.6 % (0-14.5); WHITE BLOOD COUNT 10.5 10*3/uL (4.8-10.8)
[2021-05-25 07:08] LABS: ALBUMIN 3.1 gm/dl (3.1-4.5); CREATININE 1.3 mg/dL (0.55-1.02); POTASSIUM 4.6 mmol/L (3.5-5.1); TOTAL PROTEIN 7.3 gm/dL (6.4-8.2)
[2021-05-25 08:00] VITALS: BP 138/78
[2021-05-25 12:00] VITALS: BP 129/70
[2021-05-25 16:00] VITALS: BP 121/60
[2021-05-25 20:00] VITALS: BP 126/54
[2021-05-26] VITALS: BP 133/43
[2021-05-26 06:37] LABS: BASO # 0.1 10*3/uL (0.0-0.1); BASO % 0.5 % (0.0-1.0); EOS # 0.8 10*3/uL (0.0-0.4); EOS % 7.3 % (1.0-4.0); HEMATOCRIT 39.6 % (37.0-47.0); LYMPH # 3.2 10*3/uL (1.3-4.4); LYMPH % 29.7 % (27.0-41.0); MEAN CELL VOLUME 88.6 fl (81.0-99.0); MEAN CORPUSCULAR HGB 28.2 pg (27.0-31.0); MEAN CORPUSCULAR HGB CONC 31.8 g/dl (33.0-37.0); MEAN PLATELET VOLUME 10.1 fl (9.6-12.3); MONO # 0.9 10*3/uL (0.1-1.0); MONO % 8.1 % (3.0-9.0); NEUT # 5.8 10*3/uL (2.3-7.9); NEUT % 53.9 % (47.0-73.0); PLATELET COUNT AUTOMATED 236 10*3/uL (130-400); RED BLOOD COUNT 4.47 10*6/uL (4.10-5.10); RED CELL DISTRI WIDTH 13.4 % (0-14.5); WHITE BLOOD COUNT 10.7 10*3/uL (4.8-10.8)
[2021-05-26 06:54] LABS: ALBUMIN 3.2 gm/dl (3.1-4.5); CREATININE 1.3 mg/dL (0.55-1.02); POTASSIUM 4.3 mmol/L (3.5-5.1); TOTAL PROTEIN 7.8 gm/dL (6.4-8.2)
[2021-05-26 08:00] VITALS: BP 138/61
[2021-05-26 12:00] VITALS: BP 129/73
[2021-05-26] MEDS ORDERED: ELIQUIS5 M1 PO (13:09)
== END 2021-05-26 15:09 | DRG 184 ==
LOC: ED 01:24 → 4E 04:32 → EDHOLD 04:32 → 4E 10:11
PROVIDERS: Emergency Medicine; Internal Medicine; ADMIT Student in an Organized Health Care Education/Training Program; ATTEND Student in an Organized Health Care Education/Training Program
DX: S22.43XA Multiple fractures of ribs, bilateral, initial encounter for closed fracture (principal); I50.32 Chronic diastolic (congestive) heart failure; I82.402 Acute embolism and thrombosis of unspecified deep veins of left lower extremity; I13.0 Hypertensive heart and chronic kidney disease with heart failure and stage 1 through stage 4 chronic kidney disease, or unspecified chronic kidney disease; K57.90 Diverticulosis of intestine, part unspecified, without perforation or abscess without bleeding; E03.9 Hypothyroidism, unspecified; E11.22 Type 2 diabetes mellitus with diabetic chronic kidney disease; E53.8 Deficiency of other specified B group vitamins; E78.5 Hyperlipidemia, unspecified; K22.719 Barrett's esophagus with dysplasia, unspecified; K21.9 Gastro-esophageal reflux disease without esophagitis; Z96.653 Presence of artificial knee joint, bilateral; Z96.643 Presence of artificial hip joint, bilateral; N18.32 Chronic kidney disease, stage 3b; E11.65 Type 2 diabetes mellitus with hyperglycemia; K44.9 Diaphragmatic hernia without obstruction or gangrene; Z20.822 Contact with and (suspected) exposure to COVID-19; E87.8 Other disorders of electrolyte and fluid balance, not elsewhere classified; W19.XXXA Unspecified fall, initial encounter; Y93.89 Activity, other specified; Y92.89 Other specified places as the place of occurrence of the external cause; Y99.8 Other external cause status; Z82.49 Family history of ischemic heart disease and other diseases of the circulatory system; Z90.710 Acquired absence of both cervix and uterus; Z90.49 Acquired absence of other specified parts of digestive tract

== ENCOUNTER 2021-06-20 07:20 | Inpatient (IN) | payer MEDICARE ==
[~2021-06-20] VITALS: Ht 154.9 cm; Wt 45.4 kg
[~2021-06-20 07:20] MED LIST changes: +GLUCOTROL XL5 MG PO; +REMERON15 M2 PO
[2021-06-20 07:23] VITALS: BP 145/65
[2021-06-20 07:50] LABS: BASO # 0.1 10*3/uL (0.0-0.1); BASO % 0.6 % (0.0-1.0); EOS # 0.2 10*3/uL (0.0-0.4); EOS % 2.2 % (1.0-4.0); HEMATOCRIT 39.8 % (37.0-47.0); LYMPH # 1.7 10*3/uL (1.3-4.4); LYMPH % 19.3 % (27.0-41.0); MEAN CELL VOLUME 88.6 fl (81.0-99.0); MEAN CORPUSCULAR HGB 27.8 pg (27.0-31.0); MEAN CORPUSCULAR HGB CONC 31.4 g/dl (33.0-37.0); MEAN PLATELET VOLUME 9.7 fl (9.6-12.3); MONO # 0.6 10*3/uL (0.1-1.0); MONO % 7.2 % (3.0-9.0); NEUT # 6.1 10*3/uL (2.3-7.9); NEUT % 70.2 % (47.0-73.0); PLATELET COUNT AUTOMATED 261 10*3/uL (130-400); RED BLOOD COUNT 4.49 10*6/uL (4.10-5.10); RED CELL DISTRI WIDTH 13.7 % (0-14.5); WHITE BLOOD COUNT 8.7 10*3/uL (4.8-10.8)
[2021-06-20 08:05] LABS: ALBUMIN 3.7 gm/dl (3.1-4.5); CREATININE 1.47 mg/dL (0.55-1.02); POTASSIUM 4.2 mmol/L (3.5-5.1); TOTAL PROTEIN 7.7 gm/dL (6.4-8.2)
[2021-06-20 09:51] LABS: BILIRUBIN Negative (Negative); BLOOD 1+ (Negative); CLARITY Turbid (Clear); COLOR Yellow (Yellow); GLUCOSE Negative (Negative); KETONE 2+ (Negative); LEUKO ESTERASE 3+ (Negative); NITRITE Negative (Negative); SPECIFIC GRAVITY 1.025 (1.001-1.030)
[2021-06-20 10:01] LABS: BACTERIA 2+
[2021-06-20 10:02] LABS: WBC TNTC wbc/hpf (0-5)
[2021-06-20 10:03] LABS: RBC 0-2 rbc/hpf (0-2)
[2021-06-20 13:31] VITALS: BP 120/52
[2021-06-20 20:34] VITALS: BP 144/49
[2021-06-20 22:47] VITALS: BP 153/45
[2021-06-20 23:31] VITALS: BP 144/56
[2021-06-21 04:26] VITALS: BP 103/69
[2021-06-21 04:46] LABS: BASO % 0.4 % (0.0-1.0); EOS # 0.3 10*3/uL (0.0-0.4); EOS % 3.6 % (1.0-4.0); HEMATOCRIT 38.5 % (37.0-47.0); LYMPH % 22.2 % (27.0-41.0); MEAN CELL VOLUME 90.4 fl (81.0-99.0); MEAN CORPUSCULAR HGB 27.5 pg (27.0-31.0); MEAN CORPUSCULAR HGB CONC 30.4 g/dl (33.0-37.0); MONO # 0.8 10*3/uL (0.1-1.0); MONO % 8.8 % (3.0-9.0); NEUT # 5.8 10*3/uL (2.3-7.9); NEUT % 64.7 % (47.0-73.0); PLATELET COUNT AUTOMATED 246 10*3/uL (130-400); RED BLOOD COUNT 4.26 10*6/uL (4.10-5.10); RED CELL DISTRI WIDTH 13.9 % (0-14.5)
[2021-06-21 05:05] LABS: ALBUMIN 3.1 gm/dl (3.1-4.5); BUN 17 mg/dl (7-24); CHLORIDE 110 mmol/L (98-107); POTASSIUM 3.8 mmol/L (3.5-5.1); SODIUM 140 mmol/L (136-145)
[2021-06-21 05:10] LABS: ALKALINE PHOSPHATASE 146 U/L (45-117); CREATININE 1.02 mg/dL (0.55-1.02); SGOT/AST 13 IU/L (3-35); SGPT/ALT 16 U/L (12-78)
[2021-06-21 05:14] LABS: ACT PARTIAL THROMBO TIME 26.4 SECONDS (20.0-32.1)
[2021-06-21 06:28] VITALS: BP 149/63
[2021-06-21 07:00] VITALS: BP 192/77
[2021-06-21 08:00] VITALS: BP 177/63
[2021-06-21 09:46] VITALS: BP 167/65; BP 192/77
[2021-06-21] MEDS ORDERED: HYDROCODONE-AC1 EACH PO (12:33)
== END 2021-06-21 13:26 | disposition home or self-care (01) | DRG 183 ==
LOC: ED 07:20 → EDHOLD 15:05
PROVIDERS: Emergency Medicine; Family Medicine; ADMIT Family Medicine; ATTEND Family Medicine
PROC: 3E0T3BZ Introduction of Anesthetic Agent into Peripheral Nerves and Plexi, Percutaneous Approach (ICD-10-PCS; principal; 2021-06-20)
DX: S22.43XA Multiple fractures of ribs, bilateral, initial encounter for closed fracture (principal); N17.0 Acute kidney failure with tubular necrosis; I13.0 Hypertensive heart and chronic kidney disease with heart failure and stage 1 through stage 4 chronic kidney disease, or unspecified chronic kidney disease; I50.32 Chronic diastolic (congestive) heart failure; E87.2 Acidosis; I82.409 Acute embolism and thrombosis of unspecified deep veins of unspecified lower extremity; E87.8 Other disorders of electrolyte and fluid balance, not elsewhere classified; K57.30 Diverticulosis of large intestine without perforation or abscess without bleeding; R31.9 Hematuria, unspecified; Z96.643 Presence of artificial hip joint, bilateral; Z96.653 Presence of artificial knee joint, bilateral; K44.9 Diaphragmatic hernia without obstruction or gangrene; E86.0 Dehydration; E11.65 Type 2 diabetes mellitus with hyperglycemia; E03.9 Hypothyroidism, unspecified; N18.30 Chronic kidney disease, stage 3 unspecified; Z79.899 Other long term (current) drug therapy; Z90.49 Acquired absence of other specified parts of digestive tract; Z90.710 Acquired absence of both cervix and uterus; Z82.49 Family history of ischemic heart disease and other diseases of the circulatory system; Z80.0 Family history of malignant neoplasm of digestive organs

== ENCOUNTER → 2021-10-29 | Outpatient (CLI) | payer MEDICARE ==
[~2021-10-29] MED LIST changes: +HYDROCODONE-AC1 EACH PO
[2021-10-29 09:57] LABS: BASO # 0.1 10*3/uL (0.0-0.1); BASO % 1.1 % (0.0-1.0); BILIRUBIN Negative (Negative); BLOOD Trace-Lysed (Negative); CLARITY Clear (Clear); COLOR Yellow (Yellow); EOS # 0.5 10*3/uL (0.0-0.4); EOS % 7.1 % (1.0-4.0); GLUCOSE Negative (Negative); HEMATOCRIT 38.8 % (37.0-47.0); KETONE Negative (Negative); LEUKO ESTERASE 1+ (Negative); LYMPH # 2.1 10*3/uL (1.3-4.4); LYMPH % 29.2 % (27.0-41.0); MEAN CELL VOLUME 91.3 fl (81.0-99.0); MEAN CORPUSCULAR HGB 29.2 pg (27.0-31.0); MEAN PLATELET VOLUME 10.1 fl (9.6-12.3); MONO # 0.6 10*3/uL (0.1-1.0); MONO % 8.7 % (3.0-9.0); NEUT # 3.8 10*3/uL (2.3-7.9); NEUT % 53.6 % (47.0-73.0); NITRITE Negative (Negative); PLATELET COUNT AUTOMATED 287 10*3/uL (130-400); RED BLOOD COUNT 4.25 10*6/uL (4.10-5.10); RED CELL DISTRI WIDTH 13.6 % (0-14.5); SPECIFIC GRAVITY 1.015 (1.001-1.030); UROBILINOGEN 0.2 E.U./dl (0.0-1.0); WHITE BLOOD COUNT 7.2 10*3/uL (4.8-10.8)
[2021-10-29 10:15] LABS: ALBUMIN 3.4 gm/dl (3.1-4.5); CREATININE 1.06 mg/dL (0.55-1.02); POTASSIUM 3.7 mmol/L (3.5-5.1); TOTAL PROTEIN 7.3 gm/dL (6.4-8.2); URIC ACID 5.1 mg/dL (2.6-6.0)
[2021-10-29 10:52] LABS: VITAMIN D, 25-HYDROXY 23.4 ng/mL (30-100)
[2021-10-29 11:01] LABS: BACTERIA 1+
[2021-10-30 11:07] LABS: CREATININE,URINE 108.8 mg/dL (Not Estab.)
== END | disposition home or self-care (01) ==
LOC: LAB 08:54
PROVIDERS: ATTEND Internal Medicine Nephrology
DX: I12.9 Hypertensive chronic kidney disease with stage 1 through stage 4 chronic kidney disease, or unspecified chronic kidney disease (principal); N18.30 Chronic kidney disease, stage 3 unspecified; D50.8 Other iron deficiency anemias; E11.9 Type 2 diabetes mellitus without complications; C64.9 Malignant neoplasm of unspecified kidney, except renal pelvis

== ENCOUNTER → 2021-11-26 | Outpatient (CLI) | payer MEDICARE | END | disposition home or self-care (01) | LOC: CT 14:54 | PROVIDERS: ATTEND Family Medicine | DX: I67.89 Other cerebrovascular disease (principal); I63.9 Cerebral infarction, unspecified; R44.0 Auditory hallucinations; R26.9 Unspecified abnormalities of gait and mobility; R44.1 Visual hallucinations ==

== ENCOUNTER → 2021-12-07 | Outpatient (CLI) | payer MEDICARE | END | disposition home or self-care (01) | LOC: CT 14:48 | PROVIDERS: ATTEND Family Medicine | DX: R91.1 Solitary pulmonary nodule (principal); I25.10 Atherosclerotic heart disease of native coronary artery without angina pectoris ==

== ENCOUNTER → 2022-02-06 | Outpatient (CLI) | payer MEDICARE ==
[2022-02-06 09:01] LABS: BASO # 0.1 10*3/uL (0.0-0.1); BASO % 1.1 % (0.0-1.0); EOS # 0.5 10*3/uL (0.0-0.4); EOS % 7.9 % (1.0-4.0); HEMATOCRIT 39.5 % (37.0-47.0); LYMPH # 2.4 10*3/uL (1.3-4.4); LYMPH % 37.4 % (27.0-41.0); MEAN CELL VOLUME 88.8 fl (81.0-99.0); MEAN CORPUSCULAR HGB 28.8 pg (27.0-31.0); MEAN CORPUSCULAR HGB CONC 32.4 g/dl (33.0-37.0); MEAN PLATELET VOLUME 9.6 fl (9.6-12.3); MONO # 0.5 10*3/uL (0.1-1.0); MONO % 8.2 % (3.0-9.0); NEUT # 2.9 10*3/uL (2.3-7.9); NEUT % 45.2 % (47.0-73.0); PLATELET COUNT AUTOMATED 244 10*3/uL (130-400); RED BLOOD COUNT 4.45 10*6/uL (4.10-5.10); RED CELL DISTRI WIDTH 13.1 % (0-14.5); WHITE BLOOD COUNT 6.5 10*3/uL (4.8-10.8)
[2022-02-06 09:22] LABS: CREATININE 1.23 mg/dL (0.55-1.02); POTASSIUM 3.5 mmol/L (3.5-5.1); TOTAL PROTEIN 7.7 gm/dL (6.4-8.2)
[2022-02-06 09:30] LABS: FREE T4 1.24 ng/dl (0.76-1.46)
== END | disposition home or self-care (01) ==
LOC: LAB 08:39
PROVIDERS: Family Medicine; ATTEND Family Medicine
DX: E11.22 Type 2 diabetes mellitus with diabetic chronic kidney disease (principal); E03.9 Hypothyroidism, unspecified

== ENCOUNTER → 2022-03-05 | Outpatient (CLI) | payer MEDICARE ==
[~2022-03-05] MED LIST changes: +RISPERIDONE0.25 M1 PO
== END | disposition home or self-care (01) ==
LOC: RESCLI 01:39
PROVIDERS: ATTEND Internal Medicine
DX: E11.22 Type 2 diabetes mellitus with diabetic chronic kidney disease (principal); I12.9 Hypertensive chronic kidney disease with stage 1 through stage 4 chronic kidney disease, or unspecified chronic kidney disease; K21.9 Gastro-esophageal reflux disease without esophagitis; E03.9 Hypothyroidism, unspecified; E55.9 Vitamin D deficiency, unspecified; G47.00 Insomnia, unspecified; F03.91 Unspecified dementia, unspecified severity, with behavioral disturbance; R11.0 Nausea; H35.30 Unspecified macular degeneration; R91.1 Solitary pulmonary nodule; Z79.899 Other long term (current) drug therapy; N18.9 Chronic kidney disease, unspecified; Z88.8 Allergy status to other drugs, medicaments and biological substances

== ENCOUNTER 2022-03-08 14:30 | Emergency (ER) | payer MEDICARE ==
[~2022-03-08] VITALS: Ht 160 cm; Wt 68.0 kg
[~2022-03-08 14:30] MED LIST changes: -RISPERIDONE0.25 M1 PO
[2022-03-08] MEDS ORDERED: RISPERIDONE0.25 M1 PO (14:51)
[2022-03-08 16:51] LABS: BASO # 0.1 10*3/uL (0.0-0.1); BASO % 0.8 % (0.0-1.0); EOS # 0.3 10*3/uL (0.0-0.4); EOS % 3.7 % (1.0-4.0); HEMATOCRIT 39.5 % (37.0-47.0); LYMPH # 1.9 10*3/uL (1.3-4.4); LYMPH % 26.2 % (27.0-41.0); MEAN CORPUSCULAR HGB 28.9 pg (27.0-31.0); MEAN CORPUSCULAR HGB CONC 33.2 g/dl (33.0-37.0); MONO # 0.6 10*3/uL (0.1-1.0); MONO % 8.5 % (3.0-9.0); NEUT # 4.4 10*3/uL (2.3-7.9); NEUT % 60.4 % (47.0-73.0); PLATELET COUNT AUTOMATED 229 10*3/uL (130-400); RED BLOOD COUNT 4.54 10*6/uL (4.10-5.10); RED CELL DISTRI WIDTH 13.1 % (0-14.5); WHITE BLOOD COUNT 7.3 10*3/uL (4.8-10.8)
[2022-03-08 16:53] LABS: BILIRUBIN Negative (Negative); BLOOD Negative (Negative); CLARITY Clear (Clear); COLOR Yellow (Yellow); GLUCOSE 3+ (Negative); KETONE Negative (Negative); LEUKO ESTERASE Negative (Negative); NITRITE Negative (Negative); PH 5.5 (4.5-8.0); SPECIFIC GRAVITY 1.015 (1.001-1.030); UROBILINOGEN 0.2 E.U./dl (0.0-1.0)
[2022-03-08 17:01] LABS: WBC 31-40 wbc/hpf (0-5)
[2022-03-08 17:02] LABS: BACTERIA 4+; HYALINE CAST 0-2
[2022-03-08 17:05] LABS: CREATININE 1.27 mg/dL (0.55-1.02); POTASSIUM 3.4 mmol/L (3.5-5.1); TOTAL PROTEIN 7.5 gm/dL (6.4-8.2)
== END 2022-03-08 18:16 | disposition home or self-care (01) ==
LOC: ED 14:30
PROVIDERS: Emergency Medicine
DX: E11.65 Type 2 diabetes mellitus with hyperglycemia (principal)

== ENCOUNTER 2022-08-02 14:55 | Inpatient (IN) | payer OTHER, MEDICARE ==
[~2022-08-02] VITALS: Ht 167.6 cm; Wt 65.9 kg
[2022-08-02 14:45] VITALS: BP 162/61
[~2022-08-02 14:55] MED LIST changes: +ASPIRIN ADULT L81 M2 PO; +ATORVASTATIN CA40 M1 PO; +COLACE100 MG PO; +LIPITOR20 MG PO; +LOPRESSOR50 M1 PO; +MIRALAX17 GM PO; +PAIN RELIEF1 EACH T; +Percocet 325 MG1 TAB PO; +RISPERIDONE0.25 M1 PO; +TYLENOL EXTRA500 MG PO; +ZESTRIL10 MG PO
[2022-08-02 16:00] VITALS: BP 160/64
[2022-08-02 20:00] VITALS: BP 159/53
[2022-08-03] VITALS: BP 151/61
[2022-08-03 08:00] VITALS: BP 174/56
[2022-08-03 12:00] VITALS: BP 147/89
[2022-08-03] MEDS ORDERED: MORPHINE S10 MG/0.2 PO (14:51)
[2022-08-03] MEDS ORDERED: BISACODYL10 MG R (14:51)
[2022-08-03] MEDS ORDERED: BISACODYL LAXATI5 MG PO (14:51)
[2022-08-03] MEDS ORDERED: LORAZEPAM0.5 M1 PO (14:51)
[2022-08-03 15:05] VITALS: BP 154/83
== END 2022-08-03 19:13 | disposition hospice, home (50) | DRG 65 ==
LOC: 4E 14:55
PROVIDERS: ADMIT Emergency Medicine; ATTEND Emergency Medicine
DX: I60.9 Nontraumatic subarachnoid hemorrhage, unspecified (principal); N39.0 Urinary tract infection, site not specified; R41.0 Disorientation, unspecified; K57.90 Diverticulosis of intestine, part unspecified, without perforation or abscess without bleeding; K44.9 Diaphragmatic hernia without obstruction or gangrene; E03.9 Hypothyroidism, unspecified; K22.719 Barrett's esophagus with dysplasia, unspecified; E78.5 Hyperlipidemia, unspecified; Z66 Do not resuscitate; E11.22 Type 2 diabetes mellitus with diabetic chronic kidney disease; N18.31 Chronic kidney disease, stage 3a; F41.9 Anxiety disorder, unspecified; Z51.5 Encounter for palliative care; Z90.5 Acquired absence of kidney